=== PATIENT | female | born 1975 | race Caucasian/White ===

== ENCOUNTER 2022-12-21 09:43 | Outpatient (OUT) | payer OTHER, SELFPAY ==
[2022-12-21 10:11] LABS: Basophils Percent Auto 0.7 % (0.2-2.0); Eosinophils Absolute Auto 0.1 10^3/uL (0.0-0.7); Eosinophils Percent Auto 1.3 % (0.9-7.0); Hematocrit 42.2 % (36.0-48.0); Hemoglobin 14.6 g/dL (12.0-16.0); Immature Granulocytes Abs Auto 0.01 10^3/uL (0.00-0.03); Immature Granulocytes Pct Auto 0.2 % (0.0-0.5); Lymphocytes Absolute Auto 1.5 10^3/uL (1.2-3.8); Lymphocytes Percent Auto 24.6 % (20.5-60.0); Mean Corpuscular HGB Conc 34.6 g/dL (29.9-35.2); Mean Corpuscular Hemoglobin 32.4 pg (26.7-34.0); Mean Corpuscular Volume 93.6 fL (81.0-99.0); Mean Platelet Volume 9.8 fL (9.5-13.5); Monocytes Absolute Auto 0.5 10^3/uL (0.3-0.8); Monocytes Percent Auto 8.5 % (1.7-12.0); Neutrophils Absolute Auto 3.9 10^3/uL (1.4-6.5); Neutrophils Percent Auto 64.7 % (43.0-75.0); Platelet Count 220 10^3/uL (150-450); Red Blood Count 4.51 10^6/uL (4.20-5.40); Red Cell Distribution Width 12.4 % (11.0-15.0)
[2022-12-21 10:51] LABS: Estimated Average Glucose 105 mg/dL; Glycohemoglobin A1C 5.3 % (4.5-6.2)
[2022-12-21 11:15] LABS: Alanine Aminotransferase 29 U/L (14-59); Alkaline Phosphatase 51 U/L (46-116); Anion Gap 11.5; Aspartate Amino Transferase 14 U/L (15-37); BUN Creatinine Ratio 26.6; Bilirubin Total 0.5 mg/dL (0.2-1.0); Calcium 9.3 mg/dL (8.5-10.1); Carbon Dioxide 28.5 mmol/L (21.0-32.0); Chloride 102 mmol/L (98-107); Estimated GFR (African America >60 (>=60); Estimated GFR (Non-African Ame >60 (>=60); Globulin 3.9 g/dL; Glucose 96 mg/dL (74-106); Sodium 138 mmol/L (136-145); Total Protein 7.9 g/dL (6.4-8.2)
[2022-12-21 11:23] LABS: Chol HDL Ratio 2.7; Cholesterol 242 mg/dL (<=200); Free Thyroxine Index 1.98 (1.30-4.50); HDL Cholesterol 90 mg/dL (40-60); Thyroid Stimulating Hormone 7.443 uIU/mL (0.358-3.740); Triglycerides 54 mg/dL (<=150); VLDL CHOLESTEROL 10.8 mg/dL
== END 2022-12-21 09:44 | disposition home or self-care (01) ==
LOC: LAB 09:48
PROVIDERS: PCP Family Medicine; Visit Provider Family Medicine
DX: Z00.00 Encounter for general adult medical examination without abnormal findings (principal); E03.9 Hypothyroidism, unspecified
CPT/HCPCS: 36415; 80053; 80061; 83036; 84436; 84443; 84479; 85025

== ENCOUNTER 2025-01-12 10:57 | Outpatient (OUT) | payer OTHER, SELFPAY ==
--- OUTSIDE RECORDS SUMMARY | 2025-01-12 11:00 | XMS_ITS | Encounter Summary ---
Author Organization [id number] [address] [place] [address] Care Team Providers Care Hosting Engineer Name Role Phone Rip Armstrong MD Primary Care Provider [phone] Encounter Details Date Type Department Care Team (Late st Contact Info) Description 12/02/2024 Orders Only [facility] [address] [phone] External, Scanning Provider Social History Tobacco Use Types Packs/Day Years Used Date Smoking Tobacco: Former Cigarettes Smokeless Tobacco: Never Comments:pt states she smoke s 1 time per week Alcohol Use Standard Drinks/Week Comments Yes 0 (1 standard drink = 0.6 oz pur e alcohol) socially Childcare Answer Date Recorded Childcare Unknown 12/18/2018 Employment Answer Date Recorded Employment Unknown 12/18/2018 Purpose - Life Answer Date Recorded Purpose and direction in life Unknown Comments No Sex and Gender Information Value Date Recorded Sex Assigned at Not on file Legal Sex Female 11:48 AM EDT Gender Identity Not on file Sexual Orientation Not on file documented as of this encounter Plan of Treatment Not on file documented as of this encounter Visit Diagnoses Not on filedocumented in this encounter Care Teams Hosting Engineer Relationship Specialty Start Date End Date Rip Armstrong MD PCP - General 02/18/17 documented as of this encounter
[2025-01-12 11:33] LABS: Hematocrit 37.4 % (36.0-48.0); Hemoglobin 12.7 g/dL (12.0-16.0); Immature Granulocytes Abs Auto 0.01 10^3/uL (0.00-0.03); Immature Granulocytes Pct Auto 0.2 % (0.0-0.5); Lymphocytes Absolute Auto 1.3 10^3/uL (1.2-3.8); Mean Corpuscular HGB Conc 34.0 g/dL (29.9-35.2); Mean Corpuscular Hemoglobin 32.2 pg (26.7-34.0); Mean Corpuscular Volume 94.7 fL (81.0-99.0); Platelet Count 214 10^3/uL (150-450); Red Blood Count 3.95 10^6/uL (4.20-5.40); White Blood Count 4.5 10^3/uL (4.0-11.0)
[2025-01-12 11:55] LABS: Alanine Aminotransferase 27 U/L (14-59); Albumin Globulin Ratio 1.1; Albumin Level 3.7 g/dL (3.4-5.0); Alkaline Phosphatase 56 U/L (46-116); Anion Gap 11.5; Aspartate Amino Transferase 20 U/L (15-37); Blood Urea Nitrogen 15.0 mg/dL (7.0-18.0); Calcium 8.9 mg/dL (8.5-10.1); Carbon Dioxide 29.6 mmol/L (21.0-32.0); Chloride 107 mmol/L (98-107); Cholesterol 209 mg/dL (<=200); Estimated GFR (African America >60 (>=60 mL/min/1.73m^2); Estimated GFR (Non-African Ame >60 (>=60 mL/min/1.73m^2); Free T3 2.33 pg/mL (2.18-3.98); Globulin 3.3 g/dL; Glucose 104 mg/dL (74-106); HDL Cholesterol 93 mg/dL (40-60); Potassium 4.1 mmol/L (3.5-5.1); Sodium 144 mmol/L (136-145); Thyroid Stimulating Hormone 4.244 uIU/mL (0.358-3.740); Total Protein 7.0 g/dL (6.4-8.2); Triglycerides 84 mg/dL (<=150); VLDL CHOLESTEROL 16.8 mg/dL
--- NOTE | 2025-01-12 12:04 | PC.NURSE ---
Nursing Note Cardiac Stress Test Reviewed: Medication, allergies and patient history reviewed. Stress Test: [x ] Patient tolerated stress test well. [ ] Patient unable to tolerate walking on treadmill. Switched to Lexiscan stress test. [x ] No chest pain noted per patient [ ] Chest pain that resolved prior to leaving stress lab. [ x] No dyspnea noted. [ ] Dyspnea that resolved prior to leaving stress lab. [x ] Patient left stress lab asymptomatic and hemodynamically stable. [ ] Patient taken to the Emergency Room due to non-resolving symptoms following stress test. [ x] Patient achieved target heart rate. [ ] Patient unable to achieve target heart rate. [ ] Aminophylline administered as reversal agent to Lexiscan (Regadenoson). [ ] Nitro administered. Nursing Comments:Pt had regular TM test done. Pt had no chest pain but stated she did feel palpitations at times which she stated was normal for her. Pt recovered quickly and left stress lab with no symptoms.
--- NOTE | 2025-01-13 17:53 | PM.STRESS ---
Stress Test Stress Test Requesting physician: Rip Armstrong Procedure: Treadmill stress test General Information: Reason for Stress Test: [Chest Pain/ SOB] Cardiac History and Risk Factors: [HTN] Resting 12 - Lead Electrocardiogram: NSR Stress Test: Procedure Date:01/12/2025 REASON FOR THE TEST: Chest pain. Patient underwent a Treadmill stress test. At baseline, the heart rate was 76 beats per minute with a resting blood pressure of 138/78 mm/Hg. He exercised for 7 minutes and 49 seconds, reaching stage 3, and achieving 10.1 METS. Reason for termination was achieving target heart rate. His peak heart rate 148 beats per minute, with a blood pressure of 158/82 mm/Hg, which is 87% of the expected heart rate. At baseline, patient was noted to have sinus rhythm with nnormal intervals. With exercise, patient did not develop any ST segment changes suggestive of ischemia. Occasional PVC was seen in Stage 1 was noted. No SVT/ VT seen Interpretation: 1. No EKG evidence of ischemia noted with stress test. 2. Heart rate recovery rate was noted to be normal with a good functional capacity. 3. Patient demonstrates good evidence of chronotropic competence with adequate blood pressure response. 4. Ness treadmill score of low risk of future cardiac events noted.
== END 2025-01-12 10:58 | disposition home or self-care (01) ==
PROVIDERS: PCP Family Medicine; Visit Provider Family Medicine
DX: Z00.00 Encounter for general adult medical examination without abnormal findings (principal); R07.9 Chest pain, unspecified; R00.2 Palpitations
CPT/HCPCS: 36415; 80053; 80061; 82306; 83036; 84436; 84443; 84481; 85025; 93017

== ENCOUNTER 2025-02-11 08:19 | Outpatient (REF) | payer OTHER, SELFPAY ==
--- OUTSIDE RECORDS SUMMARY | 2025-01-12 08:47 | XMS_ITS ---
Author Organization [facility] in [place] Address [address] [place] [address] Care Team Providers Care Bottling Line Attendant Name Role Phone GISELL ARMSTRONG MD Primary Care Provider Gisell Armstrong Unavailable [phone] REASON FOR VISIT labs Medications Medication SIG (Take, Route, Frequency, Duration) Notes Start Date End Date Status Synthroid 75 MCG 1 tablet in the morn ing on an empty stomach Orally Once a day for 90 days 12/25/2022 Active Vitamin D 50 MCG (1999) 1 tablet Oral ly Once a day for 90 days 01/12/2025 Active Encounters Encounter Location Date Provider Diagnosis [facility] [address] [place] [address] 01/12/2025 Gisell Armstrong Plan Of Treatment Medication Medication Name Sig Start Date Stop Date Notes Synthroid 75 MCG 1 tablet in the morn ing on an empty stomach Orally Once a day for 90 days 12/25/2022 Vitamin D 50 MCG (1999 UT) 1 tablet Oral ly Once a day for 90 days 01/12/2025 Progress Notes * Marleni BONNER LDOB:1975 (49 yo F)Acc No.[id number]:01/12/2025 Patient: Marleni PARIKH :1975 A ge:49 Y S ex:Female Address:[address] [place] [address], [phone] * Refills Start Vitamin D Tablet, 50 MCG (1999), Orally, 90 Tablet, 1 tablet, Once a day, 90 days, Refills=3 Refill Synthroid Tablet, 75 MCG, Orally, 90 Tablet, 1 tablet in the morning on an empty stomach, Once a day, 90 days, Refills=3 * true * Date: Generated for Miranda person/Talib/Ondina on: 0 02/09/2025 04:48 PM EDT
--- NOTE | 2025-02-09 | XR_ITS ---
The [address] [address] Patient Name: MAK BONNER MRN: [id number] date: 1975 Sex: F Assigned Patient Location: LAB Current Patient Location: Accession/Order Number: [id number] Exam Date: 02/10/2025 10:03 Report Date: 02/10/2025 10:04 At the request of: RICKY KEARNEY MD Procedure: XR abdomen min 2V ABDOMEN 2 VIEWS: CLINICAL INFORMATION: Diarrhea for 10 days COMPARISON: None FINDINGS: Nonspecific bowel gas pattern. No urinary tract calcifications. No free air. XR/XR abdomen min 2V IMPRESSION: No acute process. Impression dictated by: Edmund Chopra Jr., D.OYenifer 02/10/2025 10:04 AM [facility]ictation [facility] by: [id number] Y Date: 02/10/2025 10:04
--- OUTSIDE RECORDS SUMMARY | 2025-02-09 11:45 | XMS_ITS ---
Author Organization [facility] in [place] Address [address] [place] [address] Care Team Providers Care Retrimmer Name Role Phone GISELL ARMSTRONG MD Primary Care Provider Gisell Armstrong Unavailable [phone] Allergies Allergen (clinical drug ingredient) Drug/Non Drug Allergy documented on EMR Reaction Allergy Type Onset Date Status Substance with penicillin structure and antibacterial mechanism of action (substance) Penicillins hives Drug Allergy Active REASON FOR VISIT day 10 of loose stools, had a fever 10 days ago, n/v, abd pain Medications Medication SIG (Take, Route, Frequency, Duration) Notes Start Date End Date Status Ciprofloxacin HCl 500 MG 1 tablet Orally every 12 hrs for 10 days 02/09/2025 Active Vitamin D 50 MCG (1999 UT) 1 tablet Oral ly Once a day for 90 days 01/12/2025 Active Synthroid 75 MCG 1 tablet in the morn ing on an empty stomach Orally Once a day for 90 days 12/25/2022 Active Hyoscyamine Sulfate 0.125 MG 1-2 tabs SL SL every 4 hrs PRN abd pain 02/05/2025 Active Citalopram Hydrobromide 20 MG TAKE 1 TABLET ONCE DAILY for 90 Active Lisinopril 10 MG TAKE 1 TABLET ONCE D AILY for 90 Active Social History Tobacco Use: Social History Observation Description Date Details (start date - stop date) Former Smoker 07/09/2004 - 10/21/2014 Tobacco Use/Smoking Question Answer Notes Patient is a former smoker When did you start smoking? 07/09/2004 When did you stop smoking? 10/21/2014 How long has it been since you last smoked? 1-3 months AUDIT-C (Standard) Question Answer Notes Did you have a drink contain ing alcohol in the past year? Yes How often did you have a dri nk containing alcohol in the past year? Never (0 point) How many drinks did you have on a typical day when you were drinking in the past year? 1 or 2 drinks (0 point) How often did you have six o r more drinks on one occasion in the past year? 2 to 4 times a month (2 points) Points 2 Interpretation Negative Problems Problem Type SNOMED Code ICD Code Onset Dates Problem Status W/U Status Risk Notes Problem Colitis (94403217) Colitis (K52.9) Active confirmed Vital Signs Blood pressure systolic 110 mm Hg 02/10/20 25 Blood pressure diastolic 70 mm Hg 025 Height 64 in 02/09/2025 Weight 157 lbs 02/09/2025 BMI 26.95 kg/m2 02/09/2025 Encounters Encounter Location Date Provider Diagnosis [facility] [address] [place] [address] 02/09/2025 Gisell Armstrong Colitis K52.9 Assessments Encounter Date Diagnosis (ICD Code) Assessment Notes Treatment Notes Treatment Clinical Notes Section Notes 02/09/2025 Colitis (ICD-10 - K52.9) Plan Of Treatment Medication Medication Name Sig Start Date Stop Date Notes Ciprofloxacin HCl 500 MG 1 tablet Orally every 12 hrs for 10 days 02/09/2025 Pending Test Test Name Order Date CULTURE, STOOL 02/09/2025 Stool For Leukocytes 02/09/2025 C DIFF TOX PCR STOOL 02/09/2025 XR ABD FLAT_UP 02/09/2025 Progress Notes * Marleni COOK LDOB:1975 (49 yo F)Acc No.[id number]:02/09/2025 UNLOCKED PROGRESS NOTE Progress Note Patient: Marleni PARIKH Provider: Nehemias Armstrong ([facility])MD :1975 A ge:49 Y S ex:Female Date:02/09/2025 Address:[address] [place], [place] [phone] Pcp:GISELL ARMSTRONG MD Check In:03:49 PM ESTCheck O ut:04:35 PM EST Subjective: * Chief Complaints: * 1 . Day 10 of loose stools, had a fever 10 days ago, n/v, abd pain. * HPI: G eneral: watery diarrhea - been going on f or 10 days - had eleno and chills to start it off some a bd pain - no more fever - chills vomiting some back pain duering the diarhea. * Medical History: D epression, unspecified depression type. * Surgical History: t ubal ligation 08/2004, Abdominoplasty 11/2009, Diagnostic Hysteroscopy, D&C, NovaSure Ablation 04/11/2018. * Family History: F ather: alive, bladder cancer, diagnosed with Diabetes mellitus without mention of complication, type II or unspecified type, not stated as uncontrolled, Other malignant neoplasm of unspecified site. M other: alive, cervical cancer, uterine cancer, diagnosed with Other malignant neoplasm of unspecified site. B rother(s): alive. S ister(s): alive. S on(s): alive. D jimmy(s): alive. 1 brother(s) , 1 sister(s) - healthy. 2 son(s) , 2 daughter(s) - healthy. . * Social History: T obacco Use: T obacco Use/Smoking P atient is a f ormer smoker W hen did you start smoking? 0 07/09/2004 W hen did you stop smoking? 0 10/21/2014 H ow long has it been since you last smoked??1-3 months D rug/Alcohol: A TACO-C (Standard) D id you have a drink containing alcohol in the past year? Y es H ow often did you have a drink containing alcohol in the past year? N ever (0 point) H ow many drinks did you have on a typical day when you were drinking in the past year? 1 or 2 drinks (0 point) H ow often did you have six or more drinks on one occasion in the past year? 2 to 4 times a month (2 points) P oints 2 I nterpretation N egative * Medications: T aking Citalopram Hydrobromide 20 MG Tablet TAKE 1 TABLET ONCE DAILY , Taking Hyoscyamine Sulfate 0.125 MG Tablet Sublingual 1-2 tabs SL SL every 4 hrs PRN abd pain , Taking Lisinopril 10 MG Tablet TAKE 1 TABLET ONCE DAILY , Taking Synthroid(Levothyroxine Sodium) 75 MCG Tablet 1 tablet in the morning on an empty stomach Orally Once a day , Taking Vitamin D 50 MCG (1999 UT) Tablet 1 tablet Orally Once a day , Medication List reviewed and reconciled with the patient * Allergies: P enicillins: hives - Allergy. Objective: * Vitals: W t:157lbs, Ht: 64 in, BP:110/70mm Hg, BMI:26.95Index, Ht-cm: 162.56 cm, Wt-k.21 kg. * Examination: A bdomen Exam:: d ioffuly tender - no rebopund. Assessment: * Assessment: 1. C olitis - K52.9 (Primary) Plan: * Treatment: * Preventive Medicine: Screenings/Counseling: B NE ACTION PLAN Above Normal BMI Follow-up D ietary management education, guidance, and counseling * * Electronic signature of Gisell Armstrong MD, [id number] on 02/09/2025 at 04:48 PM EDT Sign off status: Pending Visit Status: C HK (Check Out) * Provider: Nehemias Armstrong ([facility])MD Date: 02/09/2025 Generated for Miranda person/Talib/eTransmitting on: 02/09/2025 04:48 PM EDT History and Physical Notes * HPI (History of Present Illness) Category Sub-Category Detail Notes Category Not es General watery diarrhea - been going on f or 10 days - had eleno and chills to start it off some abd pain - no more fever - chills vomiting some back pain duering the diarhea Examination Category Sub-Category Detail Notes Category Not es Abdomen Exam: dioffuly tende r - no rebopund
--- OUTSIDE RECORDS SUMMARY | 2025-02-09 16:48 | XMS_ITS | Clinical Summary ---
Author Organization [facility] Address [id number] [address] [place] [address] Care Team Providers Care Fringe Weaver Name Role Phone Rip Armstrong MD Primary Care Provider [phone] Allergies Active Allergy Reactions Criticality Noted Date Comments Penicillins Hives 02/18/2017 Medications citalopram (CeleXA) 20 mg tablet Take 1 tablet (20 mg total) by mouth in the morning. Active SYNTHROID 50 mcg tablet 03/07/2021 Active lisinopriL (PRINIVIL,ZESTRI L) 10 mg tablet Take 1 tablet (10 mg total) by mouth. 10/20/2024 Active Active Problems No known active problems Encounters Date Type Department Care Team Description 12/11/2024 Travel 12/02/2024 11:00 AM EDT Office Visit [facility] [address] [place] [phone] Natali Martinez, AUTOMOBILE RADIO REPAIRER-DIRECTOR OF MANAGED CARE Encounter for annual routine gynecological examination (Primary Dx); Menopausal vasomotor syndrome; Screening mammogram for breast cancer; DIMITRY (stress urinary incontinence, female) 12/02/2024 Travel 12/02/2024 Orders Only [facility] [address] [place] [phone] External, Scanning Provider 11/20/2024 Travel from Last 3 Months Family History Medical History Relation Name Comments Breast cancer Neg Hx Social History Tobacco Use Types Packs/Day Years Used Date Smoking Tobacco: Former Cigarettes Smokeless Tobacco: Never Tobacco Cessation:Counseling Given: Not Answered Comments:pt states she smokes 1 time per week Alcohol Use Standard [...] on file Sexual Orientation Not on file Last Filed Vital Signs Vital Sign Reading Time Taken Comments Blood Pressure 133/88 12/02/2024 11:14 AM EDT Pulse 67 12/02/2024 11:14 AM EDT Temperature 36.5 C (97.7 F) 10/26/2021 2:03 AM EDT Respiratory Rate 16 10/26/2021 3:33 AM EDT Oxygen Saturation 98% 10/26/2021 3:33 AM EDT Inhaled Oxygen Concentration - - Weight 73.7 kg (162 lb 6.4 oz) 12/02/2024 11:14 AM EDT Height 165.1 cm (5' 5 ) 12/02/2024 11:14 AM EDT Body Mass Index 27.02 12/02/2024 11:14 AM EDT Plan of Treatment Health Maintenance Due Date Last Done Comments Depression Screening 1986 Adult BMI Follow Up Plan 1992 DTaP,Tdap and Td Vaccines (1 - Tdap) 1993 COVID-19 Vaccine (3 - season) 2024, 08/05/2020 Zoster (Shingles) Vaccine (1 of 2) 2024 Influenza Vaccine 03/09/2025 04/22/2020 Adult BMI Screening 12/02/2025 12/02/2024 Tobacco Screening 12/02/2025 12/02/2024 Pap Smear 03/28/2026 03/28/2023 Medical Devices Not on file Procedures Procedure Name Priority Date/Time Associated Diagnosis Comments FOLLICLE STIMULATING HORMONE Routine 12/11/2024 8:57 AM EDT Menopausal vasomotor syndrome ESTRADIOL Routine 12/11/2024 8:57 AM EDT Menopausal vasomotor syndrome from Last 3 Months Results * Estradiol (12/11/2024 8:57 AM EDT) ESTRADIOL <15.0 pg/mL 12/11/2024 1:47 PM EDT [facility] Blood Venous blood / Unknown Venipuncture / Unknown 12/11/2024 8:57 AM EDT 12/11/2024 8:57 AM EDT Narrative [facility] - 12/11/2024 1:47 PM EDT NON- FEMALES Mid follicular: 25-115 pg/mL Ovulatory Peak: 32.1-517 pg/mL Mid Luteal: 36.5-246 pg/mL Post-Menopausal Females: <15.0-25.1 pg/mL (Not on hormone therapy) The Access Sensitive Estradiol assay results are not intended to be used to measure the effectiveness of exogeneous Estradiol supplementation, for example, when the patient is on hormone replacement therapy. The presence of estradiol drug analogues and their metabolites could have an impact on estradiol recovery when using this assay. Natali Martinez AUTOMOBILE RADIO REPAIRER-DIRECTOR OF MANAGED CARE LAB BLOOD ORDERABLES Fi nal Result [facility] [address] [place] [address], [place] [phone] * Follicle stimulating hormone (12/11/2024 8:57 AM EDT) FOLLICLE STIM HORMONE 51.0 mIU/mL 12/11/2024 1:43 PM EDT [facility] Blood Venous blood / Unknown Venipuncture / Unknown 12/11/2024 8:57 AM EDT 12/11/2024 8:57 AM EDT Narrative [facility] - 12/11/2024 1:43 PM EDT NORMAL FEMALE: Luteal 1.8-5.1 mIU/mL Follicular 3.8-8.8 mIU/mL Mid Cycle 4.5-22.5 mIU/mL Post Sally 16.7-113.6 mIU/mL us Natali Martinez AUTOMOBILE RADIO REPAIRER-DIRECTOR OF MANAGED CARE LAB BLOOD ORDERABLES Fi nal Result [facility] [address] [place] [address], from Last 3 Months Insurance [employer] Care Teams Fringe Weaver Relationship Specialty Start Date End Date Rip Armstrong MD PCP - General 02/18/17
--- OUTSIDE RECORDS SUMMARY | 2025-02-09 16:48 | XMS_ITS | Encounter Summary ---
Author Organization [facility] Address [id number] [address] [place] [address] Care Team Providers Care Respiratory Therapy Director Name Role Phone Rip Armstrong MD Primary Care Provider [phone] Encounter Details Date Type Department Care Team (Late st Contact Info) Description 12/02/2024 Orders Only [facility] [address] [phone] External, Scanning Provider Social History Tobacco Use [...] on filedocumented in this encounter Care Teams Respiratory Therapy Director Relationship Specialty Start Date End Date Rip Armstrong MD PCP - General 02/18/17 documented as of this encounter
--- OUTSIDE RECORDS SUMMARY | 2025-02-09 16:49 | XMS_ITS | Patient Health Record ---
Author Organization [facility] [place] Address [address] [place] [address] Care Team Providers Care Ux Lead Name Role Phone GISELL ARMSTRONG MD Primary Care Provider [phone] Gisell Armstrong Unavailable [phone] Allergies Allergen (clinical drug ingredient) Drug/Non Drug Allergy documented on EMR Reaction Allergy Type Onset Date Status Substance with penicillin structure and antibacterial mechanism of action (substance) Penicillins hives Drug Allergy Active Results Component Value Reference Range Notes CBC AUTO DIFF Reviewed date:01/12/2025 12:50:23 PM Interpretation: Performing Lab: Notes/Report: [facility] , White Blood Count 4.5 4.0-11.0 10 3/uL Red Blood Count 3.95 4.20-5.40 10 6/uL Hemoglobin 12.7 12.0-16.0 g/dL Hematocrit 37.4 36.0-48.0 % Mean Corpuscular Volume 94.7 81.0-99.0 fL Mean Corpuscular Hemoglobin 32.2 26.7-34.0 pg Mean Corpuscular HGB Conc 34.0 29.9-35.2 g/dL Red Cell Distribution Width 12.7 11.0-15.0 % Platelet Count 214 150-450 10 3/uL Mean Platelet Volume 10.3 9.5-13.5 fL Neutrophils Percent Auto 58.5 43.0-75.0 % Lymphocytes Percent Auto 29.1 20.5-60.0 % Monocytes Percent Auto 9.5 1.7-12.0 % Eosinophils Percent Auto 2.0 0.9-7.0 % Basophils Percent Auto 0.7 0.2-2.0 % Immature Granulocytes Pct Auto 0.2 0.0-0.5 % Neutrophils Absolute Auto 2.7 1.4-6.5 10 3/uL Lymphocytes Absolute Auto 1.3 1.2-3.8 10 3/uL Monocytes Absolute Auto 0.4 0.3-0.8 10 3/uL Eosinophils Absolute Auto 0.1 0.0-0.7 10 3/uL Basophils Absolute Auto 0.0 0.0-0.1 10 3/uL Immature Granulocytes Abs Auto 0.01 0.00-0.03 10 3/uL Performing Lab: see note ML - [facility] FREE T3 Reviewed date:01/12/2025 12:50:23 PM Interpretation: Performing Lab: Notes/Report: [facility] , Free T3 2.33 2.18-3.98 pg/mL Performing Lab: see note ML - [facility] GLYCOHEMOGLOBIN A1C Reviewed date:01/12/2025 12:50:23 PM Interpretation: Performing Lab: Notes/Report: [facility] , Glycohemoglobin A1C 5.4 4.5-6.2 % ADA RECOMMENDED LIMIT 4.0 - 6.0 ACTION SUGGESTED > 7.0 ADA THERAPEUTIC TARGET < 7.0 Estimated Average Glucose 108 Performing Lab: see note - [facility] LB LIPID PROFILE Reviewed date:01/12/2025 12:50:23 PM Interpretation: Performing Lab: Notes/Report: [facility] , Triglycerides 84 <=150 mg/dL Cholesterol 209 <=200 mg/dL HDL Cholesterol 93 40-60 mg/dL <40 mg/dl - HIGH CARDIOVASCULAR RISK > or =60 mg/dl - LOW CARDIOVASCULAR RISK LDL Cholesterol Calculated 100.0 <100 mg/dl OPTIMAL 130-159 mg/dl BORDERLINE HIGH >190 mg/dl VERY HIGH 100-129 mg/dl NEAR OR ABOVE OPTIMAL 160-189 mg/dl HIGH VLDL CHOLESTEROL 16.8 Chol HDL Ratio 2.2 >11.0 HIGH RISK 3.3 - 4.4 LOW RISK 7.1 - 11.0 MODERATE RISK 4.4 - 7.1 AVERAGE RISK Performing Lab: see note ML - [facility] LB PROF 14(COMP METB) Reviewed date:01/12/2025 12:50:23 PM Interpretation: Performing Lab: Notes/Report: [facility] , Sodium 144 136-145 mmol/L Potassium 4.1 3.5-5.1 mmol/L Chloride 107 98-107 mmol/L Carbon Dioxide 29.6 21.0-32.0 mmol/L Anion Gap 11.5 Glucose 104 74-106 mg/dL Blood Urea Nitrogen 15.0 7.0-18.0 mg/dL Creatinine 0.52 0.55-1.02 mg/dL Estimated GFR ( Kareen >60 >=60 mL/min/1.73m 2 Estimated GFR (Non- Ivone >60 >=60 mL/min/1.73m 2 BUN Creatinine Ratio 28.8 Calcium 8.9 8.5-10.1 mg/dL Bilirubin Total 0.5 0.2-1.0 mg/dL Aspartate Amino Transferase 20 15-37 U/L Alanine Aminotransferase 27 14-59 U/L Alkaline Phosphatase 56 46-116 U/L Total Protein 7.0 6.4-8.2 g/dL Albumin Level 3.7 3.4-5.0 g/dL Globulin 3.3 Albumin Globulin Ratio 1.1 Performing Lab: see note ML - [facility] LB T4 Reviewed date:01/12/2025 12:50:23 PM Interpretation: Performing Lab: Notes/Report: [facility] , T4 Thyroxine 6.20 4.80-13.90 ug/dL Performing Lab: see note ML - [facility] LB TSH Reviewed date:01/12/2025 12:50:23 PM Interpretation: Performing Lab: Notes/Report: [facility] , Thyroid Stimulating Hormone 4.244 0.358-3.740 u IU/mL Performing Lab: see note ML - [facility] LB VITAMIN D 25 [place] Reviewed date:01/12/2025 12:50:23 PM Interpretation: Performing Lab: Notes/Report: [facility] , Vitamin D 26.2 >100 ng/mL Potential Toxicity <20 ng/mL Vit D deficient 20-<30 ng/mL Vit D insufficient 30-100 ng/mL Vit D sufficient Performing Lab: see note ML - [facility] LB Reason For Referral No Information Medications Medication SIG (Take, Route, Frequency, Duration) Notes Start Date End Date Status Ciprofloxacin HCl 500 MG 1 tablet Orally every 12 hrs for 10 days 02/09/2025 Active Vitamin D 50 MCG (1999) 1 tablet Oral ly Once a day for 90 days 01/12/2025 Active Synthroid 75 MCG 1 tablet in the morn ing on an empty stomach Orally Once a day for 90 days 12/25/2022 Active Lisinopril 10 MG TAKE 1 TABLET ONCE D AILY for 90 Active Hyoscyamine Sulfate 0.125 MG 1-2 tabs SL SL every 4 hrs PRN abd pain 02/05/2025 Active Citalopram Hydrobromide 20 MG TAKE 1 TABLET ONCE DAILY for 90 Active Social History Tobacco Use: Social History Observation Description Date Details (start date - stop date) Former Smoker 07/09/2004 - 10/21/2014 Tobacco Use/Smoking Question Answer Notes Patient is a former smoker When did you start smoking? 07/09/2004 When did you stop smoking? 10/21/2014 How long has it been since you last smoked? 1-3 months Alcohol Screen (Audit-C) Question Answer Notes Did you have a drink contain ing alcohol in the past year? Yes How often did you have 6 or more drinks on one occasion in the past year? Monthly or less (1 point) How many drinks did you have on a typical day when you were drinking in the past year? 3 or 4 drinks (1 point) How often did you have a dri nk containing alcohol in the past year? Weekly (3 points) Points 5 Interpretation Positive AUDIT-C (Standard) Question Answer Notes Did you [...] Problem Status W/U Status Risk Notes Problem 25332328 Hypothyroidism, unspecified (E03.9) Active confirmed Problem 777651666 Gastro-esophagea l reflux disease without esophagitis (K21.9) Active confirmed Problem 71278922 Menopausal and female climacteric states (N95.1) Active confirmed Problem 319323382 Encounter for screening for malignant neoplasm of colon (Z12.11) Active confirmed Problem 218736267 Encounter for screening mammogram for malignant neoplasm of breast (Z12.31) Active confirmed Problem 495999752 Family history o f malignant neoplasm of digestive organs (Z80.0) Active confirmed Problem Chest pain (04662949) Chest pain (R07.9) Active confirmed Problem Hypertension (48710442) Hypertension (I10) Active confirmed Problem Palpitations (47686599) Palpitation (R00.2) Active confirmed Problem 608157578 Dysmenorrhea (N94.6) Active confirmed Problem Colitis (63530756) Colitis (K52.9) Active confirmed Problem Well adult (204469571) Well adult (Z00.00) Active confirmed Problem 831133340 Menorrhagia with regular cycle (N92.0) Active confirmed Problem Diverticulosis of colon (698124385) Diverticulosis of colon (K57.30) Active confirmed Problem 09270685 DIMITRY (stress urinary incontinence, female) (N39.3) Active confirmed Problem 78764382 Pure hypercholesterole dave, unspecified (E78.00) Active confirmed Problem 162180725 Intermenstrual bleeding (N92.3) Active confirmed Problem 362200551 Intermenstrual heavy bleeding (N92.0) Active confirmed Vital Signs Blood pressure diastolic 70 mm Hg 02/09/2025 Height 64 in 02/09/2025 Blood pressure systolic 110 mm Hg 02/09/2025 Weight 157 lbs 02/09/2025 BMI 26.95 kg/m2 02/09/2025 Procedures Procedure Date Ordered Date Performed Result Body Sit e EKG w Interp & Report - performed 12/08/2024 12/08/2024 N/ A CARDIO Stress Test - Cardiolite 12/08/2024 N/A Plain Treadmill Stress 01/05/2025 N/A Encounters Encounter Location Date Provider Diagnosis [facility] [address] [place] [address] 01/05/2025 Gisell Hoy Chest pain R07.9 and Palpitation R00.2 [facility] [address] [place] [address] 01/05/2025 Gisell Hoy [facility] [address] [place] [address] 01/12/2025 Gisell Armstrong [facility] [address] [facility] [place] [place] [address] 02/05/2025 Gisell Armstrong [facility] [address] [facility] [place] [place] [address] 02/09/2025 Gisell Armstrong Colitis K52.9 [facility] [address] [facility] [place] [place] [address] 09/11/2024 Gisell Millery Well adult Z00.00 [facility] [address] [facility] [place] [place] [address] 12/08/2024 Gisell Hoy Palpitation R00.2 an d Chest pain R07.9 Assessments Encounter Date Diagnosis (ICD Code) Assessment Notes Treatment Notes Treatment Clinical Notes Section Notes 09/11/2024 Well adult (ICD-10 - Z00.00) 12/08/2024 Palpitation (ICD-10 - R00.2) progressive chest pain and palpitations - ECG normla - nees stress cardiolyte + fh CAD +_ SMoker - former 12/08/2024 Chest pain (ICD-10 - R07.9) 02/09/2025 Colitis (ICD-10 - K52.9) 01/05/2025 Chest pain (ICD-10 - R07.9) 01/05/2025 Palpitation (ICD-10 - R00.2) 12/08/2024 Other Discussed increasing physical exercise and continuing/imple menting a healthier diet. Plan Of Treatment Pending Test Test Name Order Date CMP (COMPLETE METABOLIC PANEL) 3 CULTURE, STOOL 02/09/2025 HEMOGLOBIN A1C (GLYCO) 12/21/2022 HEMOGLOBIN A1C (GLYCO) 09/11/2024 LIPID PANEL (CHOL/TRIG/HDL/LDL) 09/12/19 25 LIPID PANEL (CHOL/TRIG/HDL/LDL) 12/22/19 23 CBC WITH DIFF 12/21/2022 CBC WITH DIFF 09/11/2024 PROGESTERONE 03/28/2023 VITAMIN D, 25 LEVEL (TOTAL) 09/11/2024 EKG w Interp & Report - performed 2024 FSH 03/28/2023 CARDIO Stress Test - Cardiolite 12/09/19 25 ESTRADIOL (E2)* 03/28/2023 Stool For Leukocytes 02/09/2025 C DIFF TOX PCR STOOL 02/09/2025 MAMM SCREEN BILAT KIARA 3D GLOBAL* 2022 STOOL OCCULT BLOOD 09/11/2024 LIPID PROFILE 12/22/2022 THYROID PROFILE WITH TSH 12/22/2022 XR ABD FLAT_UP 02/09/2025 Plain Treadmill Stress 01/05/2025 THYROID PANEL (T4/TSH/FREE T3) 3 THYROID PANEL (T4/TSH/FREE T3) CMP (COMP MET REYES) w/eGFR CKD-EPI 2024 Insurance Providers Payer Name Payer Address Payer Phone Subscriber Number Group Number Insured Name Patient Relationship to Insured Coverage Start Date Coverage End Date [facility] [facility] [address] [place] [phone] [id number] Marleni Cook Self - patient is the insured Medical (General) History Medical History History ICD Code Depression, unspecified depression type F32.9 Surgical History Surgery Date(Month/Year) Diagnostic Hysteroscopy, D&C, NovaSure A blation 04/11/2018 Abdominoplasty 11/2009 tubal ligation 08/2004
== END 2025-02-11 08:20 | disposition home or self-care (01) ==
LOC: LAB 08:19
PROVIDERS: PCP Family Medicine; Visit Provider Family Medicine
DX: Z00.00 Encounter for general adult medical examination without abnormal findings (principal)
CPT/HCPCS: 74019; G0328

== ENCOUNTER 2025-04-08 08:16 | Outpatient (OUT) | payer OTHER, SELFPAY ==
--- OUTSIDE RECORDS SUMMARY | 2025-04-08 08:19 | XMS_ITS | Patient Health Record ---
Author Organization [facility] [place] Address [address] [place] [address] Care Team Providers Care Housing Management Officer Name Role Phone GISELL ARMSTRONG MD Primary Care Provider Gisell Armstrong Unavailable [phone] Allergies Allergen (clinical drug ingredient) Drug/Non Drug Allergy documented on EMR Reaction Allergy Type Onset Date Status Substance with penicillin structure and antibacterial mechanism of action (substance) Penicillins hives Drug Allergy Active Results Component Value Reference Range Notes VITAMIN D 25 [place] Reviewed date:01/12/2025 12:50:23 PM Interpretation: Performing Lab: Notes/Report: [facility] , Vitamin D 26.2 >100 ng/mL Potential Toxicity <20 ng/mL Vit D deficient 20-<30 ng/mL Vit D insufficient 30-100 ng/mL Vit D sufficient Performing Lab: see note ML - [facility] LB PROF 14(COMP METB) Reviewed date:01/12/2025 12:50:23 PM Interpretation: Performing Lab: Notes/Report: [facility] , Sodium 144 136-145 mmol/L Potassium [...] 1.1 Performing Lab: see note ML - [facility] LB CBC AUTO DIFF Reviewed date:01/12/2025 12:50:23 PM Interpretation: Performing Lab: Notes/Report: [facility] , White Blood Count 4.5 4.0-11.0 [...] 3/uL Performing Lab: see note ML - [facility] LB Occult Blood* Reviewed date:02/11/2025 12:41:05 PM Interpretation: Performing Lab: Notes/Report: [facility] , Occult Blood Positive Performing Lab: see note ML - [facility] LB XR abdomen min 2V Reviewed date:02/10/2025 02:51:03 PM Interpretation: Performing Lab: Notes/Report: Source Facility: [place] [address] XRay Report Signed Patient: MARLENI COOK MR#: [id number] : 1975 Acct:[id number] Age/Sex: 49 / F ADM Date: 02/09/25 Loc: LAB Attending Dr: Ricky Armstrong M.D. Ordering Physician: Ricky Armstrong M.D. Date of Service: 02/09/25 Procedure(s): XR abdomen min 2V Accession Number(s): [id number] cc: Ricky Armstrong M.D. [place] [address] Patient Name: MARLENI COOK MRN: [id number] date: 1975 Sex: F Assigned Patient Location: LAB Current Patient Location: Accession/Order Number: [id number] Exam Date: 02/10/2025 10:03 Report Date: 02/10/2025 10:04 At the request of: RICKY ARMSTRONG MD Procedure: XR abdomen min 2V ABDOMEN 2 VIEWS: CLINICAL INFORMATION: Diarrhea for 10 days COMPARISON: None FINDINGS: Nonspecific bowel gas pattern. No urinary tract calcifications. No free air. XR/XR abdomen min 2V IMPRESSION: No acute process. Impression dictated by: Breanna Reyes Jr.OYenifer 02/10/2025 10:04 AM Dictation Location: [place] [address] Electronically authenticated by: [id number] Y Date: 02/10/2025 10:04 Dictated By: Edmund Chopra M.D. Signed By: 02/10/25 1006 DD/ 1004 TD/TT: Comb Tender: TSH Reviewed date:01/12/2025 12:50:23 PM Interpretation: Performing Lab: Notes/Report: [facility] , Thyroid Stimulating Hormone 4.244 0.358-3.740 u IU/mL Performing Lab: see note ML - [facility] LB T4 Reviewed date:01/12/2025 12:50:23 PM Interpretation: Performing Lab: Notes/Report: [facility] , T4 Thyroxine 6.20 4.80-13.90 ug/dL Performing Lab: see note ML - [facility] LB LIPID PROFILE Reviewed date:01/12/2025 12:50:23 PM Interpretation: Performing Lab: Notes/Report: [facility] , Triglycerides 84 <=150 mg/dL Cholesterol [...] RISK Performing Lab: see note ML - [facility] LB GLYCOHEMOGLOBIN A1C Reviewed date:01/12/2025 12:50:23 PM Interpretation: Performing Lab: Notes/Report: [facility] , Glycohemoglobin A1C 5.4 4.5-6.2 % ADA RECOMMENDED LIMIT 4.0 - 6.0 ACTION SUGGESTED > 7.0 ADA THERAPEUTIC TARGET < 7.0 Estimated Average Glucose 108 Performing Lab: see note ML - [facility] LB FREE T3 Reviewed date:01/12/2025 12:50:23 PM Interpretation: Performing Lab: Notes/Report: [facility] , Free T3 2.33 2.18-3.98 pg/mL Performing Lab: see note ML - [facility] LB Reason For Referral Diagnosis 1 Positive occult stoo l blood test (R19.5) Referral Organization [facility] Referring Provider First Name Gisell Referring Provider Last Name Nathaniel Referring Provider Speciality Family Med brandon Referred Provider Thor Bolden Referred Provider Specialty General Surg rodolfo Referral Priority Routine Medications Medication SIG (Take, Route, Frequency, Duration) Notes Start Date End Date Status Lisinopril 10 MG TAKE 1 TABLET ONCE DAILY; Duration: 90 Active Ciprofloxacin HCl 500 MG 1 tablet Orally every 12 hrs; Duration: 10 days 02/09/2025 Active Vitamin D 50 MCG (2000 UT) 1 tablet Oral ly Once a day; Duration: 90 days 01/12/2025 Active Synthroid 75 MCG 1 tablet in the morn ing on an empty stomach Orally Once a day; Duration: 90 days 12/25/2022 Active Hyoscyamine Sulfate 0.125 MG 1-2 tabs SL SL every 4 hrs PRN abd pain 02/05/2025 Active Citalopram Hydrobromide 20 MG TAKE 1 TABLET ONCE DAILY; Duration: 90 Active Social History Tobacco Use: Social [...] Problem Status W/U Status Risk Notes Problem Hypothyroidism (25014082) Hypothyroidism, unspecified (E03.9) Active confirmed Problem Gastro-esophageal reflux disease without esophagitis (530640042) Gastro-esophagea l reflux disease without esophagitis (K21.9) Active confirmed Problem Menopause (726064320) Menopausal and female climacteric states (N95.1) Active confirmed Problem Screening for malignant neoplasm of colon (891703956) Encounter for screening for malignant neoplasm of colon (Z12.11) Active confirmed Problem Screening for malignant neoplasm of breast (280431147) Encounter for screening mammogram for malignant neoplasm of breast (Z12.31) Active confirmed Problem Family history of malignant neoplasm of gastrointestinal tract (603559350) Family history of malignant neoplasm of digestive organs (Z80.0) Active confirmed Problem Chest pain (42524943) Chest pain (R07.9) Active confirmed Problem Hypertension (25402789) Hypertension (I10) Active confirmed Problem Palpitations (29876713) Palpitation (R00.2) Active confirmed Problem Dysmenorrhea (371602582) Dysmenorrhea (N94.6) Active confirmed Problem Colitis (03929000) Colitis (K52.9) Active confi rmed Problem Well adult (892224384) Well adul t (Z00.00) Active confirmed Problem Excessive and freque nt menstruation (838882017) Menorrhagia with regular cycle (N92.0) Active confirmed Problem Diverticulosis of colon (280685903) Diverticulosis of colon (K57.30) Active confirmed Problem Female urinary stres s incontinence (75386973) DIMITRY (stress urinary incontinence, female) (N39.3) Active confirmed Problem Pure hypercholesterolemia (235645452) Pure hypercholesterol emia, unspecified (E78.00) Active confirmed Problem Intermenstrual bleeding (064107901) Intermenstrual bleeding (N92.3) Active confirmed Problem Intermenstrual heavy bleeding (833090422) Intermenstrual heavy bleeding (N92.0) Active confirmed Vital [...] N/A Encounters Encounter Location Date Provider Diagnosis [facility] [place] [address] [facility] [place] [address] 09/11/2024 Gisell Pauly Well adult Z00.00 [facility] [address] [facility] [place] [address] 02/09/2025 Gisell Hoy Colitis K52.9 [facility] [address] [facility] [place] [address] 12/08/2024 Gisell Hoy Palpitation R00.2 an d Chest pain R07.9 [facility] [place] [address] [facility] [place] [address] 01/05/2025 Gisell Hoy Chest pain R07.9 and Palpitation R00.2 [facility] [place] [address] [facility] [address] 01/05/2025 Gisell Hoy [facility] [place] [address] [facility] [place] [address] 01/12/2025 Gisell Hoy [facility] [place] [address] [facility] [place] [address] 02/05/2025 Gisell Pauly [facility] [place] [address] [facility] [place] [address] 02/10/2025 Gisell Millery [facility] [address] [facility] [place] [address] 02/11/2025 Gisell Millery Positive occult stoo l blood test R19.5 [facility] [address] [facility] [address] 02/12/2025 Gisell Armstrong Assessments Encounter Date Diagnosis (ICD Code) Assessment [...] - R07.9) 01/05/2025 Palpitation (ICD-10 - R00.2) 02/11/2025 Positive occult stool blood test (ICD-10 - R19.5) 12/08/2024 Other Discussed increasing physical exercise and [...] Treadmill Stress 01/05/2025 THYROID PANEL (T4/TSH/FREE T3) 5 THYROID PANEL (T4/TSH/FREE T3) 3 CMP (COMP MET REYES) w/eGFR CKD-EPI 2024 Insurance Providers Payer Name Payer Address Payer Phone Subscriber Number Group Number Insured Name Patient Relationship to Insured Coverage Start Date Coverage End Date [employer]ET[employer] [place] [address] [place] [phone] [id number] Marleni Cook Self - patient is the insured Medical (General) History Medical History History ICD Code Depression, unspecified depression type F32.9 Surgical History Surgery Date(Month/Year) Diagnostic Hysteroscopy, D&C, Esequiel A blation 04/11/2018 Abdominoplasty 11/2009 tubal ligation 08/2004
--- OUTSIDE RECORDS SUMMARY | 2025-04-08 08:19 | XMS_ITS | Encounter Summary ---
Author [id number] [address] [place] [address] Care Team Providers Care Pediatric Orthodontist Name Role Phone Rip Armstrong MD Primary Care Provider [phone] Encounter Details Date Type Department Care Team (Late st Contact Info) Description 12/02/2024 Orders Only [facility] Urogynecology [address] [id number] External, Scanning Provider Social History Tobacco Use [...] on filedocumented in this encounter Care Teams Pediatric Orthodontist Relationship Specialty Start Date End Date Rip Armstrong MD PCP - General 02/18/17 documented as of this encounter
== END 2025-04-08 08:17 | disposition home or self-care (01) ==
LOC: PST 08:16
PROVIDERS: PCP Family Medicine; Visit Provider Surgery
DX: Z01.818 Encounter for other preprocedural examination (principal); R19.5 Other fecal abnormalities; Z80.0 Family history of malignant neoplasm of digestive organs

== ENCOUNTER 2025-04-15 07:17 | Day surgery (SDC) | payer OTHER, SELFPAY ==
--- NOTE | 2025-04-15 | OP_ITS ---
OPERATION DATE: 04/15/2025 PREOPERATIVE DIAGNOSIS: Positive fecal occult blood test, change in bowel habits and family history of colon cancer. POSTOPERATIVE DIAGNOSIS: Normal colonoscopy to cecum. PROCEDURE: Colonoscopy to cecum. SURGEON: Thor Bolden M.D. ANESTHESIA: Monitored anesthesia care. ESTIMATED BLOOD LOSS: Zero. INDICATIONS AND CONSENT: Patient is a 49-year-old female with history of recent positive fecal occult blood test. She also has a family history of colon cancer, has had some alternating diarrhea and constipation. Indications, risks, benefits, alternatives of proceeding with colonoscopy were explained extensively to the patient, including the risks of bleeding, colon perforation or anesthetic complications. All of her questions were answered. Informed consent was obtained. PROCEDURE: Patient brought to the operating room, placed in the left lateral decubitus position. Monitored anesthesia care was provided. Rectal exam was performed which showed no masses or blood. The scope was inserted into the anal canal. Under direct visualization was advanced. With the aid of abdominal compression, it was advanced to the cecum where cecal markings were clearly identified. Upon withdrawal of the scope, mucosal surfaces were carefully examined. There was noted to be a good prep. There were no mass lesions or polyps. No inflammatory changes or ulcerations. No significant diverticulosis. The scope was retroflexed in the anal canal. There were some prominent rectal veins. No significant hemorrhoidal disease. The scope was then withdrawn. Patient tolerated procedure well, was sent to recovery room in good condition. Follow up colonoscopy for screening should be in 10 years. CC: Rip Armstrong M.D. MTDNehemias
[2025-04-15 07:19] VITALS: BP 150/98; PULSE 85; TEMP 36.2; O2SAT 96; BMI 26.7
[2025-04-15 08:44] VITALS: BP 125/83; PULSE 71; TEMP 36.2; O2SAT 94
[2025-04-15 08:59] VITALS: BP 121/90; PULSE 70; O2SAT 94
[2025-04-15 09:14] VITALS: BP 136/90; PULSE 62; TEMP 36.2; O2SAT 100
== END 2025-04-15 09:14 | disposition home or self-care (01) ==
LOC: SURGOUT 07:18
PROVIDERS: PCP Family Medicine; Visit Provider Surgery
PROC: (CPT 811; principal; 2025-04-15 08:20)
DX: R19.5 Other fecal abnormalities (principal); Z80.0 Family history of malignant neoplasm of digestive organs; R19.4 Change in bowel habit; I10 Essential (primary) hypertension; E03.9 Hypothyroidism, unspecified; E78.00 Pure hypercholesterolemia, unspecified; F32.A Depression, unspecified; Z87.891 Personal history of nicotine dependence; Z98.51 Tubal ligation status
CPT/HCPCS: 45378; J2704